=== PATIENT | male | born 1985 | race Caucasian/White ===

== ENCOUNTER 2023-01-11 02:58 | Emergency (ER) | payer OTHER, SELFPAY ==
[2023-01-11 02:58] VITALS: BP 117/90; PULSE 112; RESP 18; TEMP 37.9; O2SAT 93; BMI 23.4
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
[2023-01-11] MEDS: iohexol 350 mg/mL 500 mL Btl (per mL) IV (03:52)
[2023-01-11 04:05] VITALS: RESP 18
[2023-01-11 04:05] LABS: Basophils # 0.1 10^3/uL (0.0-0.1); Basophils % 0.3 %; Eosinophils % 0.2 %; Hematocrit 39.8 % (37-53); Lymphocytes % 4.5 %; Mean Corpuscular HGB Conc 33.7 g/dL (30-55); Mean Corpuscular Hemoglobin 30.9 pg (27-33); Mean Corpuscular Volume 91.9 fl (82-101); Mean Platelet Volume 11.5 fL (7.4-10.4); Monocytes # 1.8 10^3/uL (0.2-0.9); Monocytes % 8.1 %; Neutrophils # 18.83 10^3/uL (1.8-7.7); Neutrophils % 85.7 %; Nucleated Red Blood Cells % 0 %; Platelet Count 165 10^3/cmm (157-399); Red Blood Count 4.33 10^6/uL (3.85-5.65); Red Cell Distribution Width 12.4 % (12.1-15.1); White Blood Count 21.95 10^3/uL (3.29-11.43)
[2023-01-11] MEDS: ondansetron 2 mg/ML SDV 2 mL 4 MG IVP (04:05)
[2023-01-11] MEDS: HYDROmorphone 1 mg/mL INJ 1 mL IVP ×2 (04:05→05:00)
[2023-01-11 04:08] VITALS: BP 119/84; PULSE 116; RESP 18; O2SAT 96
--- NOTE | 2023-01-11 04:20 | PC.NURSE ---
Dr Cast gave verbal orders to this nurse to put in Tetanus shot orders.
[2023-01-11 04:21] LABS: Alanine Aminotransferase 51 U/L (0-41); Albumin Level 4.4 g/dL (3.5-5.2); Alcohol Level 85 mg/dL (0-10); Alkaline Phosphatase 85 U/L (40-130); Anion Gap 14.1 (5-19); Aspartate Amino Transferase 47 U/L (0-40); Blood Urea Nitrogen 14 mg/dL (6-20); Calcium 8.4 mg/dL (8.5-10.5); Carbon Dioxide 24 mmol/L (22-29); Chloride 103 mmol/L (98-107); Globulin 1.9 g/dL (1.3-4.6); Glomerular Filtration Rate 93.9 mL/min (90-130); Glucose 96 mg/dL (65-115); Osmolality Calculated 284 mOsm/kg (285-295); Potassium 4.1 mmol/L (3.5-5.1); Sodium 137 mmol/L (136-145); Total Bilirubin 0.2 mg/dL (0.15-1.2); Total Protein 6.3 g/dL (6.6-8.7)
[2023-01-11 04:29] LABS: Add Urine Culture? No; Add Urine Microscopic? YES; Amorphous Sediment Urine 1+ /hpf; Bilirubin Urine Neg (Negative); Blood Urine 2+ (Negative); Glucose Urine UA Norm (Normal); Ketones Urine Negative (Negative); Leukocyte Esterase Urine Negative (Negative); Mucus Urine 1+ /hpf; Nitrate Urine Negative (Negative); Protein Urine Neg (Negative); RBC Urine 0-4 /hpf (0-2); Specific Gravity, Urine 1.015 (1.005-1.030); Squamous Epithelial Cell Urine RARE /hpf (0-5); Urine Appearance Clear (CLEAR); Urine Color Light yellow (Yellow); Urobilinogen Urine Neg (Negative); WBC Urine RARE /hpf (0-5); pH Urine 5 (5-7)
--- NOTE | 2023-01-11 04:57 | PC.NURSE ---
Dr Cast gave this nurse verbal order to put in 1mg Dilaudid IVP once. Orders put in by this nurse per Dr Cast.
[2023-01-11 05:00] VITALS: RESP 18
[2023-01-11] MEDS: tetanus-diphtheria tox (adult) 0.5 mL SDV IM (05:17)
[2023-01-11] MEDS: clindamycin 150 mg Capsule 600 MG PO (05:41)
[2023-01-11 06:13] VITALS: BP 145/84; PULSE 110; RESP 18; O2SAT 93
--- NOTE | 2023-01-11 06:47 | PC.NURSE ---
Dc paperwork was filled out upon arrival of family to ER. IV still intact at this time, as family just arrived and plans on staying for a short period.
== END 2023-01-11 10:30 | disposition home or self-care (01) ==
PROVIDERS: Emergency Provider Emergency Medicine
DX: S00.83XA Contusion of other part of head, initial encounter (principal); S00.03XA Contusion of scalp, initial encounter; S80.12XA Contusion of left lower leg, initial encounter; S13.4XXA Sprain of ligaments of cervical spine, initial encounter; S81.812A Laceration without foreign body, left lower leg, initial encounter; S01.81XA Laceration without foreign body of other part of head, initial encounter; V86.95XA Unspecified occupant of 3- or 4- wheeled all-terrain vehicle (ATV) injured in nontraffic accident, initial encounter; Z23 Encounter for immunization
CPT/HCPCS: 12013; 12015; 12034; 12054; 36415; 70450; 71260; 72125; 73590; 74177; 80053; 80307; 81001; 85025; 90471; 90714; 96374; 96375; 96376; 99285; J1170; J2405; Q9967

== ENCOUNTER 2024-09-03 02:19 | Emergency (ER) | payer OTHER, SELFPAY ==
[2024-09-03 02:19] VITALS: BP 139/96; PULSE 91; TEMP 37.1; O2SAT 96; BMI 25.1
--- NOTE | 2024-09-03 02:20 | ECG_ITS ---
[facility] Test Date: 2024-09-03 Pat Name: Mauricio Batres Department: Room: Gender: Male Rn Maternity: : 1985 Requested By: Deedee Eubanks Order Number: [id number] Dorota MD: Benjamin Segura M.D. Measurements Intervals [place] Rate: 90 P: 67 MS: 161 QRS: 44 QRSD: 99 T: 51 QT: 344 QTc: 422 Interpretive Statements SINUS RHYTHM Incomplete right bundle branch block No previous ECG available for comparison Electronically Signed On 09-03-2024 09:03:00 CDT by Benjamin Segura M.D. [email or web address] [id number]
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
[2024-09-03 03:31] VITALS: BP 141/103; PULSE 95; RESP 24; O2SAT 99
[2024-09-03] MEDS: ondansetron 2 mg/ML SDV 2 mL 4 MG IVP (03:35)
[2024-09-03] MEDS: tetanus-dipt-pertussis 0.5 mL SDV IM (03:36)
[2024-09-03] MEDS: HYDROmorphone 0.5 MG/0.5 ML INJ 1 MG IVP (03:40)
[2024-09-03] MEDS: sodium chloride 0.9% 1,000 ML 999 ML IV (04:01)
[2024-09-03] MEDS: lidocaine-epi 1% 20 mL INJ INJECTION (04:14)
[2024-09-03 04:23] LABS: Basophils % 0.2 %; Eosinophils % 0.1 %; Hematocrit 43.6 % (37-53); Lymphocytes # 1.5 10^3/uL (0.8-4.8); Lymphocytes % 7.8 %; Mean Corpuscular HGB Conc 33.9 g/dL (30-55); Mean Corpuscular Hemoglobin 30.7 pg (27-33); Mean Corpuscular Volume 90.5 fl (82-101); Monocytes # 1.4 10^3/uL (0.2-0.9); Monocytes % 6.9 %; Neutrophils # 16.41 10^3/uL (1.8-7.7); Neutrophils % 84.2 %; Nucleated Red Blood Cells % 0 %; Platelet Count 227 10^3/cmm (157-399); Red Blood Count 4.82 10^6/uL (3.85-5.65); Red Cell Distribution Width 12.7 % (12.1-15.1)
[2024-09-03 04:28] LABS: INR 0.88 (0.8-1.2); Partial Thromboplastin Time 24.9 SECONDS (23.9-36.7)
[2024-09-03 04:32] LABS: Alanine Aminotransferase 43 U/L (0-41); Albumin Level 4.6 g/dL (3.5-5.2); Alcohol Level 136 mg/dL (0-10); Alkaline Phosphatase 111 U/L (40-130); Aspartate Amino Transferase 29 U/L (0-40); Blood Urea Nitrogen 8 mg/dL (6-20); Calcium 9.1 mg/dL (8.5-10.5); Carbon Dioxide 24 mmol/L (22-29); Chloride 105 mmol/L (98-107); Creatinine Clr Calc Pharmacy 154.4421; Globulin 2.8 g/dL (1.3-4.6); Glomerular Filtration Rate 124.9 mL/min (90-130); Glucose 110 mg/dL (65-115); Osmolality Calculated 289 mOsm/kg (285-295); Sodium 140 mmol/L (136-145); Total Bilirubin 0.3 mg/dL (0.15-1.2); Total Protein 7.4 g/dL (6.6-8.7)
[2024-09-03 04:33] LABS: Lactic Sepsis W/Reflex 1.8 mmol/L (0.5-2.2)
[2024-09-03 04:35] VITALS: RESP 18
[2024-09-03] MEDS: HYDROmorphone 1 mg/mL INJ 1ml IVP (04:35)
[2024-09-03] MEDS: ketorolac 30 mg/mL INJ IVP (04:35)
[2024-09-03 05:41] VITALS: BP 133/64; PULSE 60; RESP 16; O2SAT 97
[2024-09-03 05:42] VITALS: BP 133/64; PULSE 60; RESP 16; O2SAT 97
== END 2024-09-03 05:47 | disposition short-term general hospital (02) ==
PROVIDERS: Emergency Provider Emergency Medicine
DX: S12.120A Other displaced dens fracture, initial encounter for closed fracture (principal); S01.01XA Laceration without foreign body of scalp, initial encounter; F10.129 Alcohol abuse with intoxication, unspecified; Y90.6 Blood alcohol level of 120-199 mg/100 ml; V89.2XXA Person injured in unspecified motor-vehicle accident, traffic, initial encounter
CPT/HCPCS: 70450; 72125; 80053; 80307; 83605; 85025; 85610; 85730; 90471; 90715; 93005; 96374; 96375; 96376; 99285; J0690; J1171; J1885; J2405; J7030; J9999